=== PATIENT | female | born 1940 | race Caucasian/White ===

== ENCOUNTER → 2016-10-28 | Outpatient (CLI) | payer OTHER ==
[~2016-10-28] VITALS: Ht 160 cm; Wt 75.9 kg
[~2016-10-28] MED LIST: ACID CONTROLLER20 MG PO; DIOVAN HCT 11 TABLET PO; LEXAPRO20 MG PO; LIPITOR20 MG PO; LOPRESSOR100 M1 PO; METFORMIN HCL500 M4 PO; SYNTHROID75 MCG PO; ULTRAM50 MG PO
[2016-10-28 17:06] VITALS: BP 136/57
[2016-10-28 17:34] VITALS: BP 107/50
[2016-10-28 17:48] VITALS: BP 114/55
[2016-10-28 18:49] VITALS: BP 116/51
[2016-10-28 19:49] VITALS: BP 121/59
== END | disposition home or self-care (01) ==
LOC: IVINF 10-27 16:00
DX: D50.0 Iron deficiency anemia secondary to blood loss (chronic) (principal)
CPT/HCPCS: 36415; 36430; 86850; 86900; 86901; 86920; 86999; P9016

== ENCOUNTER 2016-11-01 11:47 | Day surgery (SDC) | payer OTHER ==
[~2016-11-01] VITALS: Ht 165.1 cm; Wt 73.6 kg
[2016-11-01 12:25] VITALS: BP 136/58
[2016-11-01 12:51] LABS: HEMATOCRIT 31.7 % (36.0-46.0); MCH 23.9 PG (29.0-34.0); MCHC 31.5 G/DL (30.0-36.0); MCV 75.7 FL (83-99); MEAN PLAT.VOLUME 10.2 uM^3 (9.5-12.4); PLATELET COUNT 365 K/uL (156-360); RBC DIS.WIDTH-CV 16.2 % (11.8-14.6); RBC DIS.WIDTH-SD 44.6 % (39-53); RED BLOOD COUNT 4.19 M/uL (3.80-5.20); WHITE BLOOD COUNT 5.7 K/uL (4.1-10.2)
[2016-11-01 12:56] LABS: POINT-OF-CARE METER ID UU14174212
[2016-11-01 13:11] LABS: ANION GAP 12 MEQ/L (2-14); CHLORIDE 92 MEQ/L (99-109); POTASSIUM 4.1 MEQ/L (3.7-5.4); SAMPLE HEMOLYSIS CHECK 0; SAMPLE ICTERIC CHECK 0; SAMPLE LIPEMIA CHECK 0; SODIUM 133 MEQ/L (136-147); TOTAL BILIRUBIN 0.4 MG/DL (0.0-1.0)
[2016-11-01 13:17] LABS: ALKALINE PHOSPHATASE 60 IU/L (3-129); GFR ESTIMATE (CALCULATED) 46 mL/min/; GLUCOSE 95 mg/dL (70-99); UREA NITROGEN (BUN) 16 mg/dL (9-23)
[2016-11-01 14:41] VITALS: BP 130/62
[2016-11-01 15:58] VITALS: BP 125/59
[2016-11-01 17:40] VITALS: BP 114/59
[2016-11-01 19:40] VITALS: BP 118/59
== END 2016-11-01 20:05 | disposition home or self-care (01) ==
LOC: SDC 11:47
PROVIDERS: Obstetrics & Gynecology Gynecology
DX: R93.8 Abnormal findings on diagnostic imaging of other specified body structures (principal); N81.4 Uterovaginal prolapse, unspecified; N84.0 Polyp of corpus uteri; N84.1 Polyp of cervix uteri; E66.3 Overweight; Z68.28 Body mass index [BMI] 28.0-28.9, adult; Z82.49 Family history of ischemic heart disease and other diseases of the circulatory system; Z83.3 Family history of diabetes mellitus; Z82.62 Family history of osteoporosis; Z83.2 Family history of diseases of the blood and blood-forming organs and certain disorders involving the immune mechanism
CPT/HCPCS: 80053; 82948; 85027; 88305; 93005; J0131; J0330; J0690; J1100; J1170; J1885; J2405; J2765; J3010

== ENCOUNTER 2017-09-28 00:58 | Inpatient (IN) | payer OTHER ==
[~2017-09-28] VITALS: Ht 166.4 cm; Wt 74.7 kg
[2017-09-28 01:32] LABS: HEMATOCRIT 39.2 % (36.0-46.0); MCH 29.7 PG (29.0-34.0); MCHC 32.9 G/DL (30.0-36.0); MCV 90.3 FL (83-99); MEAN PLAT.VOLUME 10.1 uM^3 (9.5-12.4); PLATELET COUNT 233 K/uL (156-360); RBC DIS.WIDTH-CV 12.3 % (11.8-14.6); RBC DIS.WIDTH-SD 40.8 % (39-53); RED BLOOD COUNT 4.34 M/uL (3.80-5.20); WHITE BLOOD COUNT 8.4 K/uL (4.1-10.2)
[2017-09-28 01:38] LABS: PROTHROMBIN TIME 11.2 SEC (10.2-12.9)
[2017-09-28 01:41] LABS: PTT 31.3 SEC (25-37)
[2017-09-28 01:43] LABS: CHLORIDE 100 mEq/L (99-109); MAGNESIUM 1.9 mg/dL (1.3-2.7); POTASSIUM 3.8 mEq/L (3.7-5.4); SODIUM 136 mEq/L (136-147)
[2017-09-28 01:45] LABS: GLUCOSE 132 mg/dL (70-99)
[2017-09-28 01:46] LABS: ANION GAP 10 MEQ/L (2-14)
[2017-09-28 01:47] LABS: TOTAL BILIRUBIN 0.5 mg/dL (0.0-1.0)
[2017-09-28 01:48] LABS: ADD MIUA? YES; BILIRUBIN NEGATIVE; BLOOD SMALL; COLOR YELLOW ((YELLOW)); GLUCOSE (STRIP) NEGATIVE; KETONES 5; LEUKOCYTES LARGE; NITRITE NEGATIVE; PROTEIN (STRIP) 100; SPECIFIC GRAVITY 1.012 (1.000-1.030); UROBILINOGEN 0.2 MG/DL (0.2-1.0)
[2017-09-28 01:49] LABS: ALKALINE PHOSPHATASE 70 IU/L (3-129); GFR ESTIMATE (CALCULATED) 57 mL/min/
[2017-09-28 01:50] LABS: UREA NITROGEN (BUN) 15 mg/dL (9-23)
[2017-09-28 01:52] LABS: CREATINE KINASE 96 IU/L (1-294); TOTAL CK 96 IU/L (1-294)
[2017-09-28 02:11] LABS: BACTERIA 2+ /HPF; CASTS NONE SEEN /LPF; CRYSTALS NONE SEEN; EPITHELIAL CELLS RARE /HPF; MUCUS NONE SEEN /LPF; UCUL ADDED? YES; WHITE BLOOD CELLS TNTC /HPF (0-5)
[2017-09-28] MEDS ORDERED: METOPROLOL SUC100 MG PO (07:31)
[2017-09-28] MEDS ORDERED: DIOVAN HCT 81 TABLET PO (07:32)
[2017-09-28] MEDS ORDERED: METFORMIN HCL500 MG PO (07:34)
[2017-09-28] MEDS ORDERED: CENTRUM SILVER1 EAC4 PO (07:35)
[2017-09-28] MEDS ORDERED: OMEGA 3 500 SO1 EACH PO (07:35)
[2017-09-28] MEDS ORDERED: [UNRECOGNIZED DRUG - OTHER] TP (07:36)
[2017-09-28] MEDS ORDERED: TYLENOL REGULA325 MG PO (07:36)
[2017-09-28] MEDS ORDERED: LACTAID ULT9000 UNIT PO (07:37)
[2017-09-28 08:56] VITALS: BP 163/68
[2017-09-28 09:00] VITALS: BP 163/68
[2017-09-28 09:42] LABS: POINT-OF-CARE METER ID UU14162513
[2017-09-28 13:11] VITALS: BP 183/81
[2017-09-28 16:01] VITALS: BP 186/72
[2017-09-28 17:33] LABS: POINT-OF-CARE METER ID UU14162513
[2017-09-28 19:25] VITALS: BP 170/74
[2017-09-28 22:18] LABS: POINT-OF-CARE METER ID UU14162513
[2017-09-29] VITALS (7 sets, daily range): BP systolic 136–193; BP diastolic 65–95
[2017-09-29 04:50] LABS: HEMATOCRIT 39.7 % (36.0-46.0); MCH 29.8 PG (29.0-34.0); MCHC 33.2 G/DL (30.0-36.0); MCV 89.6 FL (83-99); MEAN PLAT.VOLUME 10.1 uM^3 (9.5-12.4); PLATELET COUNT 252 K/uL (156-360); RBC DIS.WIDTH-CV 12.4 % (11.8-14.6); RBC DIS.WIDTH-SD 41.1 % (39-53); RED BLOOD COUNT 4.43 M/uL (3.80-5.20); WHITE BLOOD COUNT 7.5 K/uL (4.1-10.2)
[2017-09-29 05:11] LABS: CHLORIDE 98 mEq/L (99-109); POTASSIUM 3.7 mEq/L (3.7-5.4); SODIUM 138 mEq/L (136-147)
[2017-09-29 05:12] LABS: GLUCOSE 113 mg/dL (70-99)
[2017-09-29 05:14] LABS: ANION GAP 11 MEQ/L (2-14)
[2017-09-29 05:16] LABS: GFR ESTIMATE (CALCULATED) > 59 mL/min/
[2017-09-29 05:17] LABS: UREA NITROGEN (BUN) 13 mg/dL (9-23)
[2017-09-29 08:52] LABS: POINT-OF-CARE METER ID UU14162513
[2017-09-29 18:11] LABS: POINT-OF-CARE METER ID UU14162513
[2017-09-29 22:29] LABS: POINT-OF-CARE METER ID UU13113831
[2017-09-30 04:00] VITALS: BP 115/53
[2017-09-30 07:25] VITALS: BP 191/81
[2017-09-30 09:09] LABS: POINT-OF-CARE METER ID UU13113831
[2017-09-30 12:38] VITALS: BP 168/78
[2017-09-30 12:57] LABS: POINT-OF-CARE METER ID UU13113700
[2017-09-30 16:20] VITALS: BP 128/59
[2017-09-30 16:54] LABS: POINT-OF-CARE METER ID UU13113831
[2017-09-30 20:22] VITALS: BP 114/57
[2017-09-30 21:49] LABS: POINT-OF-CARE METER ID UU14162513
[2017-10-01 09:08] LABS: POINT-OF-CARE METER ID UU13113831
[2017-10-01 09:13] VITALS: BP 160/69
[2017-10-01 12:00] VITALS: BP 117/57
[2017-10-01 13:30] LABS: POINT-OF-CARE METER ID UU14162513
[2017-10-01 17:10] VITALS: BP 135/66
[2017-10-01 17:39] LABS: POINT-OF-CARE METER ID UU13113700
[2017-10-01 20:00] VITALS: BP 128/68
[2017-10-01 22:03] LABS: POINT-OF-CARE METER ID UU13113831
[2017-10-02 03:00] VITALS: BP 130/63
[2017-10-02 08:46] LABS: POINT-OF-CARE METER ID UU13113700
[2017-10-02] MEDS ORDERED: NAPROSYN250 MG PO (12:16)
[2017-10-02] MEDS ORDERED: APRESOLINE25 MG PO (12:16)
[2017-10-02] MEDS ORDERED: ENDOCET 5-3251 EACH PO (12:18)
[2017-10-02] MEDS ORDERED: PREDNISONE10 MG PO (12:21)
[2017-10-02 12:58] LABS: POINT-OF-CARE METER ID UU14162513
[2017-10-02] MEDS ORDERED: PERCOCET 5/31 TABLET PO (14:45)
== END 2017-10-02 15:00 | disposition home or self-care (01) | DRG 93 ==
LOC: EME 00:58 → EDOF 07:31 → 5WEST 07:31 → EDOF 07:31 → ENRESERV 07:33 → 5WEST 08:55 → CANRESERV 09-29 14:48 → ENRESERV 09-29 14:48 → 5WEST 10-02 15:00
PROVIDERS: Emergency Medicine; Internal Medicine; Nurse Practitioner Adult Health
DX: G89.29 Other chronic pain (principal); E11.9 Type 2 diabetes mellitus without complications; I11.0 Hypertensive heart disease with heart failure; I50.9 Heart failure, unspecified; E03.9 Hypothyroidism, unspecified; F32.9 Major depressive disorder, single episode, unspecified; Z87.891 Personal history of nicotine dependence; K80.20 Calculus of gallbladder without cholecystitis without obstruction
CPT/HCPCS: 71020; 72131; 73564; 73700; 74176; 78580; 80048; 80053; 81003; 82550; 82553; 82948; 83735; 85027; 85379; 85610; 85730; 87086; 93971; 99281; 99285; A9540; G0378; J1644; J1885; J2270; J7512

== ENCOUNTER 2017-10-08 01:13 | Observation (INO) | payer OTHER ==
[~2017-10-08] VITALS: Ht 165.1 cm; Wt 70.0 kg
[~2017-10-08 01:13] MED LIST changes: +APRESOLINE25 MG PO; +CENTRUM SILVER1 EAC4 PO; +DIOVAN HCT 81 TABLET PO; +ENDOCET 5-3251 EACH PO; +LACTAID ULT9000 UNIT PO; +METFORMIN HCL500 MG PO; +METOPROLOL SUC100 MG PO; +NAPROSYN250 MG PO; +OMEGA 3 500 SO1 EACH PO; +PERCOCET 5/31 TABLET PO; +PREDNISONE10 MG PO; +TYLENOL REGULA325 MG PO; +[UNRECOGNIZED DRUG - OTHER] TP
[2017-10-08 04:24] LABS: HEMATOCRIT 44.1 % (36.0-46.0); MCH 29.6 PG (29.0-34.0); MCHC 33.1 G/DL (30.0-36.0); MCV 89.5 FL (83-99); MEAN PLAT.VOLUME 10.1 uM^3 (9.5-12.4); PLATELET COUNT 283 K/uL (156-360); RBC DIS.WIDTH-CV 12.5 % (11.8-14.6); RBC DIS.WIDTH-SD 41.1 % (39-53); RED BLOOD COUNT 4.93 M/uL (3.80-5.20); WHITE BLOOD COUNT 12.3 K/uL (4.1-10.2)
[2017-10-08 04:34] LABS: CHLORIDE 93 mEq/L (99-109); POTASSIUM 3.7 mEq/L (3.7-5.4); SODIUM 132 mEq/L (136-147)
[2017-10-08 04:36] LABS: GLUCOSE 116 mg/dL (70-99)
[2017-10-08 04:38] LABS: ANION GAP 10 MEQ/L (2-14)
[2017-10-08 04:40] LABS: GFR ESTIMATE (CALCULATED) 57 mL/min/
[2017-10-08 04:41] LABS: UREA NITROGEN (BUN) 23 mg/dL (9-23)
[2017-10-08 05:33] LABS: ADD MIUA? YES; BILIRUBIN NEGATIVE; BLOOD MODERATE; COLOR YELLOW ((YELLOW)); GLUCOSE (STRIP) NEGATIVE; KETONES 5; LEUKOCYTES LARGE; NITRITE NEGATIVE; PROTEIN (STRIP) 30; SPECIFIC GRAVITY 1.017 (1.000-1.030); UROBILINOGEN 0.2 MG/DL (0.2-1.0)
[2017-10-08 05:42] LABS: BACTERIA RARE /HPF; EPITHELIAL CELLS 2+ /HPF; MUCUS TRACE /LPF; UCUL ADDED? YES; WHITE BLOOD CELLS 40-50 /HPF (0-5)
[2017-10-08 11:40] VITALS: BP 149/94
[2017-10-08] MEDS ORDERED: VALSARTAN80 MG PO (12:57)
[2017-10-08] MEDS ORDERED: TRAMADOL HCL50 MG PO (13:02)
[2017-10-08] MEDS ORDERED: COLACE100 MG PO (13:03)
[2017-10-08] MEDS ORDERED: EYE DROP15 ML BOTH EYES (13:03)
[2017-10-08 15:26] VITALS: BP 176/76
[2017-10-08 19:17] VITALS: BP 130/62
[2017-10-09 00:34] VITALS: BP 137/64
[2017-10-09 05:27] LABS: HEMATOCRIT 40.7 % (36.0-46.0); MCH 29.7 PG (29.0-34.0); MCHC 33.2 G/DL (30.0-36.0); MCV 89.6 FL (83-99); MEAN PLAT.VOLUME 10.3 uM^3 (9.5-12.4); PLATELET COUNT 219 K/uL (156-360); RBC DIS.WIDTH-CV 12.7 % (11.8-14.6); RBC DIS.WIDTH-SD 41.1 % (39-53); RED BLOOD COUNT 4.54 M/uL (3.80-5.20); WHITE BLOOD COUNT 8.7 K/uL (4.1-10.2)
[2017-10-09 06:11] LABS: ANION GAP 7 MEQ/L (2-14); CHLORIDE 91 MEQ/L (99-109); GFR ESTIMATE (CALCULATED) 51 mL/min/; GLUCOSE 97 mg/dL (70-99); SAMPLE HEMOLYSIS CHECK 0; SAMPLE ICTERIC CHECK 0; SAMPLE LIPEMIA CHECK 0; SODIUM 130 MEQ/L (136-147); UREA NITROGEN (BUN) 24 mg/dL (9-23)
[2017-10-09 06:15] LABS: POTASSIUM 4.5 MEQ/L (3.7-5.4)
[2017-10-09 08:00] VITALS: BP 111/5
[2017-10-09 11:00] VITALS: BP 110/56
[2017-10-09 16:00] VITALS: BP 106/87
[2017-10-09 19:50] VITALS: BP 95/52
[2017-10-09 23:38] VITALS: BP 110/60
[2017-10-10] MEDS ORDERED: NAPROSYN250 MG PO (10:06)
[2017-10-10] MEDS ORDERED: LYRICA75 MG PO (10:09)
[2017-10-10] MEDS ORDERED: Salonpas 4% Patch TD ×2 (10:09→13:15)
[2017-10-10] MEDS ORDERED: MEDROL DOSEPAK4 MG PO (10:17)
[2017-10-10 12:42] VITALS: BP 120/78
== END 2017-10-10 13:37 | disposition home or self-care (01) ==
LOC: EME 01:13 → EXP 01:13 → EDOF 06:09 → 5WEST 06:09 → EDOF 06:09 → ENRESERV 06:10 → 5WEST 09:08
PROVIDERS: Physician Assistant; Physician Assistant Medical
DX: M79.662 Pain in left lower leg (principal); M79.652 Pain in left thigh; M54.16 Radiculopathy, lumbar region; Z91.19 Patient's noncompliance with other medical treatment and regimen; M47.9 Spondylosis, unspecified; G89.29 Other chronic pain; I10 Essential (primary) hypertension; E03.9 Hypothyroidism, unspecified; E11.9 Type 2 diabetes mellitus without complications; F32.9 Major depressive disorder, single episode, unspecified; F41.9 Anxiety disorder, unspecified; R32 Unspecified urinary incontinence; Z79.84 Long term (current) use of oral hypoglycemic drugs; Z79.52 Long term (current) use of systemic steroids; Z79.891 Long term (current) use of opiate analgesic; Z87.891 Personal history of nicotine dependence; Z88.1 Allergy status to other antibiotic agents
CPT/HCPCS: 80048; 81003; 85027; 87086; 99281; 99284; G0378; G8978 GP CI; G8979 CJ; G8980 GP CI; G8987 GO CI; G8988 GO CH; G8989 GO CI; J1650; J1885; J2405; J3010; J7509; J7512